=== PATIENT | male | born 1965 | race Caucasian/White ===

== ENCOUNTER 2020-11-09 14:38 | Emergency (ER) | payer MEDICAID ==
[~2020-11-09] VITALS: Ht 182.9 cm; Wt 74.0 kg
--- NOTE | 2020-11-09 14:47 | NUR ---
[facility] pt fell off his long board, left shoulder pain, denies neck pain -loc. pt to xray
[2020-11-09] MEDS ORDERED: PLEASE ENTER HEIGHT AND WEIGHT MC SCH (15:00)
[2020-11-09] MEDS ORDERED: KETOROLAC 15 MG/1ML IVPush ONE (15:00)
[2020-11-09] MEDS ORDERED: KETOROLAC 30 MG/1 ML ONE (15:20)
[2020-11-09] MEDS ORDERED: HYDROcodone/APAP 5/325 TABLET ONE (15:29)
[2020-11-09] MEDS ORDERED: HYDROcodone/APAP 5/325 TABLET PO ONE (15:30)
[2020-11-09 15:34] VITALS: BP 136/88
--- NOTE | 2020-11-09 15:34 | NUR ---
PT MEDICATED PER ERP ORDER FOR 9/10 L SHOULDER PAIN. PT STATES UTD TETANUS. SLING APPLIED. VS UPDATED, CALL LIGHT WITHIN REACH.
== END 2020-11-09 16:20 | disposition home or self-care (01) ==
LOC: ED 15:22
DX: S42.032A Displaced fracture of lateral end of left clavicle, initial encounter for closed fracture (principal); F17.200 Nicotine dependence, unspecified, uncomplicated; V00.131A Fall from skateboard, initial encounter; Y93.51 Activity, roller skating (inline) and skateboarding; Y92.328 Other athletic field as the place of occurrence of the external cause; Y99.8 Other external cause status
CPT/HCPCS: 73030; 96374; 99283; J1885